=== PATIENT | male | born 2005 | race Caucasian/White ===

== ENCOUNTER 2024-05-19 08:23 | Outpatient (AMB) | payer BC, SELFPAY ==
[2024-05-19 09:01] VITALS: BP 118/72; PULSE 74; TEMP 37; O2SAT 98; BMI 30.9
--- NOTE | 2024-05-19 09:01 | MHC.OFFWIV ---
Intake Vital Signs 05/19/24 09:01 Height 6 ft 1 in Weight 234 lb BMI 30.9 BP 118/72 Blood Pressure Location Rt brachial Position Sitting Pulse 74 Pulse Source Pulse Oximeter Temp 98.6 F Temp Source Oral Pulse Oximetry (%) 98 Intake Visit Reasons: [employer] sore throat Intake Note: pt is here for sore throat, with swollen tonsil since sunday Patient Tobacco Use Status: Never used Tobacco Allergies No Known Allergies Allergy (Verified 05/19/24 09:02) Do you need a note to return to daycare/school/sports/work: Yes HPI [employer]GER sore throat HPI Details This note is constructed using voice recognition software. While every effort has been made to ensure accuracy, dictating machine transcriber errors may have been included. 18-year-old male presents with 4 day history of sore throat, mild frontal headache. He denies fever, chills, cough, shortness of breath, body aches. He has had no sick contacts. He tried ibuprofen yesterday which helped the sore throat, when the medication wore off the sore throat came back. He has been increasing his hydration which seems to be doing the best job for a sore throat. [facility] Social History Patient Tobacco Use Status: Never used Tobacco Review of Systems Const All systems reviewed & are unremarkable except as noted in HPI and below Physical Exam Vital Signs: Last Vital Signs Temp 98.6 F 05/19/24 09:01 Pulse 74 05/19/24 09:01 BP 118/72 05/19/24 09:01 Pulse Ox 98 05/19/24 09:01 BMI result Body Mass Index 30.9 Const General: cooperative, healthy appearing, comfortable and no acute distress Orientation/consciousness: patient oriented x3 Limitations: no limitations HEENT Head: Yes normal to inspection Ears: hearing grossly normal bilaterally, external ears normal and TM's normal bilaterally General nose exam: Normal external nose present and Normal nares present Face and sinus: Yes normal facial exam and Yes sinuses nontender Mouth: Normal oral and palatal mucosa present and moist mucous membranes Throat: Yes tonsils normal, Yes uvula midline, Yes posterior oropharynx abnormal (Erythema) and Yes cobblestoning Eyes General: appearance normal, both eyes and all related structures Neck Neck: Yes normal visual inspection Resp Effort & Inspection: normal respiratory effort, able to speak in complete sentences, Actively coughing, no respiratory distress, not tachypneic, no tripod positioning and no use of accessory muscles Auscultation: clear to auscultation bilaterally Cardio Jugular venous distension: no JVD Rate: regular rate Rhythm: regular rhythm Heart sounds: S1 normal heart sound present, S2 normal heart sound present, no click, no gallops, no murmurs and no rubs Skin General skin exam: no rashes or lesions noted, elasticity normal and turgor normal Neuro General: patient oriented x3 Extrem General: Yes normal to inspection and Yes no clubbing, cyanosis or edema Assessment & Plan Assessment & Plan (1) Allergic rhinitis due to allergen: Code(s): J30.9 - Allergic rhinitis, unspecified Qualifiers: Allergic rhinitis trigger: pollen Allergic rhinitis seasonality: seasonal Qualified Code(s): J30.1 - Allergic rhinitis due to pollen Plan: Advised to increase hydration, use of second-generation antihistamine, such as Zyrtec, Anna, Claritin, or Xyzal. May try Flonase nasal spray as needed. Follow-up as needed with worsening or failure to resolve. Plan See above for full details and plan. Coding Level of Care Code New Pt Level 3 (28992) Diagnoses Seasonal allergic rhinitis due to pollen J30.1 Allergic rhinitis trigger: pollen Allergic rhinitis seasonality: seasonal
== END 2024-05-19 09:39 | disposition home or self-care (01) ==
PROVIDERS: Visit Provider Registered Nurse
DX: J30.1 Allergic rhinitis due to pollen (principal); J02.9 Acute pharyngitis, unspecified
CPT/HCPCS: 87880; 99203